=== PATIENT | female | born 1995 | race African-American/Black ===

== ENCOUNTER 2020-06-30 13:37 | Emergency (ER) | payer OTHER, SELFPAY ==
[2020-06-30 14:18] VITALS: BP 128/66; PULSE 78; RESP 16; TEMP 35.8; O2SAT 95; BMI 27.8
[2020-06-30] MEDS: traMADoL HCL 50 MG TABLET PO (14:52)
[2020-06-30] MEDS: Ibuprofen 800 MG TABLET PO (14:52)
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
--- NOTE | 2020-06-30 14:59 | XR_ITS ---
EXAMINATION: XR KNEE, LEFT CLINICAL INFORMATION: Status post twisting injury. Patellar pain. COMPARISON: None TECHNIQUE: Four views of the left knee. FINDINGS: Bones and soft tissues are normal. No fracture or joint effusion. Alignment is anatomic. Joint spaces are well maintained. No abnormal soft tissue calcification. XR/XR knee LT 4V IMPRESSION: Unremarkable left knee exam
== END 2020-06-30 16:45 | disposition home or self-care (01) ==
PROVIDERS: Emergency Provider Internal Medicine
DX: S83.92XA Sprain of unspecified site of left knee, initial encounter (principal); M25.562 Pain in left knee; X50.1XXA Overexertion from prolonged static or awkward postures, initial encounter; Y93.9 Activity, unspecified; Y92.9 Unspecified place or not applicable; Y99.9 Unspecified external cause status
CPT/HCPCS: 29505; 73564; 99283

== ENCOUNTER → 2020-07-06 13:02 | Outpatient (BNVA) | payer OTHER, SELFPAY | PROVIDERS: Visit Provider Physician Assistant | DX: S83.005A Unspecified dislocation of left patella, initial encounter (principal) | CPT/HCPCS: 99202 ==

== ENCOUNTER 2020-10-16 12:57 | Outpatient (REF) | payer OTHER, SELFPAY ==
[2020-10-17 01:09] LABS: CT PCR NOT DETECTED (Not Detect.); NG PCR NOT DETECTED (Not Detect.)
[2020-10-17 08:17] LABS: HBc Num1 0.07 S/CO (0.00-0.79); Hepatitis B Core Antibody Nonreactive (Nonreactive)
[2020-10-17 08:38] LABS: HIV AB/AG Nonreactive (Nonreactive); HIV Num 1 0.04 S/CO (0.00-0.99); ~HepC Num1 0.05 S/CO (0.00-0.79); ~Hepatitis C Antibody Nonreactive (Nonreactive)
[2020-10-17 09:23] LABS: Syphilis Screen Nonreactive (Nonreactive)
[2020-10-17 09:48] LABS: BV Int Neg Control Negative (Negative); BV Int Pos Control Positive (Positive)
== END 2020-10-16 12:58 | disposition home or self-care (01) ==
LOC: HO.LAB 12:57
PROVIDERS: PCP Internal Medicine; Visit Provider Advanced Practice Midwife
DX: Z11.3 Encounter for screening for infections with a predominantly sexual mode of transmission (principal); Z11.4 Encounter for screening for human immunodeficiency virus [HIV]; Z01.84 Encounter for antibody response examination; R10.2 Pelvic and perineal pain; N92.6 Irregular menstruation, unspecified; Z20.2 Contact with and (suspected) exposure to infections with a predominantly sexual mode of transmission
CPT/HCPCS: 36415; 81003; 81025; 86704; 86780; 86803; 87389; 87480; 87491; 87510; 87591; 87660; 99202

== ENCOUNTER 2020-12-26 10:04 | Emergency (ER) | payer OTHER, SELFPAY | END 2020-12-26 12:34 | disposition left against medical advice (07) | PROVIDERS: Emergency Provider Emergency Medicine | DX: R10.9 Unspecified abdominal pain (principal) ==

== ENCOUNTER 2021-05-09 12:51 | Outpatient (REF) | payer OTHER, SELFPAY ==
[2021-05-09 16:19] LABS: CT PCR NOT DETECTED (Not Detect.); NG PCR DETECTED (Not Detect.)
[2021-05-10 10:09] LABS: BV Int Neg Control Negative (Negative); BV Int Pos Control Positive (Positive)
== END 2021-05-09 12:52 | disposition home or self-care (01) ==
LOC: HO.LAB 12:51
PROVIDERS: PCP Internal Medicine; Visit Provider Obstetrics & Gynecology
DX: B00.9 Herpesviral infection, unspecified (principal); Z20.2 Contact with and (suspected) exposure to infections with a predominantly sexual mode of transmission
CPT/HCPCS: 87255; 87480; 87491; 87510; 87591; 87660; 99212

== ENCOUNTER → 2021-05-10 14:05 | Outpatient (BNVA) | payer OTHER, SELFPAY | PROVIDERS: PCP Internal Medicine; Visit Provider Obstetrics & Gynecology | DX: A54.9 Gonococcal infection, unspecified (principal) | CPT/HCPCS: 96372; 99211; J0696 ==

== ENCOUNTER 2021-05-23 12:52 | Outpatient (REF) | payer OTHER, SELFPAY ==
[2021-05-24 01:02] LABS: CT PCR NOT DETECTED (Not Detect.); NG PCR NOT DETECTED (Not Detect.)
== END 2021-05-23 12:53 | disposition home or self-care (01) ==
LOC: HO.LAB 12:52
PROVIDERS: PCP Internal Medicine; Visit Provider Obstetrics & Gynecology
DX: A54.9 Gonococcal infection, unspecified (principal); B00.9 Herpesviral infection, unspecified
CPT/HCPCS: 87491; 87591; 99212

== ENCOUNTER → 2021-10-15 09:51 | Outpatient (BNVA) | payer OTHER, SELFPAY | PROVIDERS: Visit Provider Advanced Practice Midwife | DX: Z32.01 Encounter for pregnancy test, result positive (principal) | CPT/HCPCS: 81025; 99212 ==

== ENCOUNTER 2021-10-17 08:17 | Outpatient (REF) | payer OTHER, SELFPAY ==
[2021-10-17 08:39] LABS: MANUAL DIFF FLAG NO
[2021-10-17 10:00] LABS: Basophils Percent Auto 0.3 % (0-2); Eosinophils Absolute Auto 0.1 X10*3/uL (0.0-0.4); Eosinophils Percent Auto 1.7 % (0-4); Hematocrit 40.3 % (37.0-47.0); Hemoglobin 13.5 g/dl (12.0-16.0); Imm Gran Abs Auto 0.02 X10*3/uL (0.00-0.03); Imm Gran Pct Auto 0.3 % (0.0-0.4); Lymphocytes Absolute Auto 1.6 X10*3/uL (1.2-4.9); Lymphocytes Percent Auto 26.4 % (20-40); Mean Corpuscular HGB Conc 33.5 g/dl (31.0-35.0); Mean Corpuscular Volume 89.6 fL (80.0-98.0); Mean Platelet Volume 11.6 fL (9.4-12.3); Monocytes Absolute Auto 0.4 X10*3/uL (0.1-1.2); Monocytes Percent Auto 6.5 % (2-11); Neutrophils Absolute Auto 3.8 x10*3/uL (2.0-8.3); Neutrophils Percent Auto 64.8 % (45-73); Platelet Count 211 X10*3/uL (160-400); Red Cell Distribution Width 13.4 % (11.0-16.0); White Blood Count 5.9 X10*3/uL (4.8-10.8)
[2021-10-17 10:04] LABS: Appearance Urine HAZY; Color Urine YELLOW; Glucose Urine UA NEG (NEG); Leukocyte Esterase Urine NEG (NEG); Nitrite Urine NEG (NEG); PH 8.5 (5.0-8.0); Specific Gravity - Urine 1.015 (1.005-1.025); Urine Blood NEG (NEG); Urine Ketones NEG (NEG); Urine Protein NEG (NEG-TRACE)
[2021-10-17 10:15] LABS: Alanine Aminotransferase 19 U/L (0-31); Alkaline Phosphatase 68 U/L (39-117); Anion Gap 10 (12-20); Aspartate Amino Transferase 14 U/L (5-31); Bilirubin Total 0.8 mg/dL (0.0-1.0); Blood Urea Nitrogen 7 mg/dL (9-16); Calcium 9.4 mg/dL (8.4-10.2); Carbon Dioxide 24 mmol/L (22-29); Chloride 108 mmol/L (96-108); Cholesterol 127 mg/dL; Estimated Glomerular Filt Rate > 60; Glucose Fasting 92 mg/dL (60-99); HDL Cholesterol 49 mg/dL; LDL Cholesterol Calculated 69 mg/dl; Potassium 3.9 mmol/L (3.3-5.1); Sodium 138 mmol/L (135-145); Total Protein 6.8 g/dL (6.5-8.0); Triglycerides 45 mg/dL
[2021-10-17 10:18] LABS: HCG Quantitative 14375 mIU/mL
[2021-10-17 10:32] LABS: HBsAGNum1 0.24 S/CO (0.00-0.99); HIV AB/AG Nonreactive (Nonreactive); HIV Num 1 0.08 S/CO (0.00-0.99); Hepatitis B Surface Antigen Negative (Negative)
[2021-10-17 10:38] LABS: TSH reflex Free T4 0.52 uIU/mL (0.32-4.0)
[2021-10-18 08:44] LABS: Syphilis Screen Nonreactive (Nonreactive)
== END 2021-10-17 08:18 | disposition home or self-care (01) ==
LOC: HO.LAB 08:17
PROVIDERS: Obstetrics & Gynecology; Absent Provider Internal Medicine; PCP Internal Medicine; Visit Provider Advanced Practice Midwife
DX: O26.899 Other specified pregnancy related conditions, unspecified trimester (principal); R55 Syncope and collapse; O98.319 Other infections with a predominantly sexual mode of transmission complicating pregnancy, unspecified trimester; A60.9 Anogenital herpesviral infection, unspecified; O99.210 Obesity complicating pregnancy, unspecified trimester; E66.9 Obesity, unspecified; Z3A.00 Weeks of gestation of pregnancy not specified
CPT/HCPCS: 36415; 80053; 80061; 81003; 84443; 84702; 85025; 86780; 87340; 87389

== ENCOUNTER 2021-10-18 10:24 | Outpatient (REF) | payer OTHER, SELFPAY ==
--- NOTE | ~2021-10-18 | US_ITS ---
EXAMINATION: OBSTETRICAL ULTRASOUND, FIRST TRIMESTER HISTORY: 25-year-old at 8.2 weeks of gestation Viability LMP: Uncertain COMPARISON: None TECHNIQUE: Real time transabdominal imaging with color and M-mode Doppler. FINDINGS: A single, live IUP CRL of 8.6 mm c/w 6.6wks is noted. Heart Rate: 139 beats per minute. The left ovary is within normal limits. The right ovary was not the visualized today. GESTATIONAL AGE: 1. GA from LMP: 8.2 wks 2. GA from AUA: 6.6 wks ESTIMATED DATE OF DELIVERY: 1. EMMANUEL from LMP: 05/28/2022 2. EMMANUEL from AUA: 06/07/2022 US/US OB <= 14 weeks fetus IMPRESSION: 1. A single live IUP 2. Size less than dates, CRL is consistent with 6 weeks and 6 days. 3. Adjust EMMANUEL to 06/07/2022 based on today's exam. Thank you very much for this referral. This note was generated with a voice recognition program. Please excuse any errors which may have been overlooked during my review of this note. Sometimes these errors may affect the content or meaning of a given sentence.
== END 2021-10-18 10:25 | disposition home or self-care (01) ==
LOC: HO.US 10:24
PROVIDERS: PCP Internal Medicine; Visit Provider Advanced Practice Midwife
DX: Z34.91 Encounter for supervision of normal pregnancy, unspecified, first trimester (principal)
CPT/HCPCS: 76801

== ENCOUNTER → 2021-10-25 09:26 | Outpatient (BNVA) | payer OTHER, SELFPAY | PROVIDERS: PCP Internal Medicine; Visit Provider Advanced Practice Midwife | DX: O99.211 Obesity complicating pregnancy, first trimester (principal); E66.9 Obesity, unspecified; Z3A.01 Less than 8 weeks gestation of pregnancy | CPT/HCPCS: 99212 ==

== ENCOUNTER 2021-10-31 08:39 | Outpatient (REF) | payer OTHER, SELFPAY ==
[2021-10-31 10:17] LABS: Hemoglobin 13.4 g/dl (12.0-16.0); Mean Corpuscular HGB Conc 33.5 g/dl (31.0-35.0); Mean Corpuscular Hemoglobin 30.4 pg (27.0-33.0); Mean Corpuscular Volume 90.7 fL (80.0-98.0); Mean Platelet Volume 10.7 fL (9.4-12.3); Platelet Count 186 X10*3/uL (160-400); Red Blood Count 4.41 X10*6/uL (4.20-5.50); Red Cell Distribution Width 13.5 % (11.0-16.0); White Blood Count 5.9 X10*3/uL (4.8-10.8)
[2021-10-31 10:42] LABS: Glucose 1 Hour PP 50gm Dose 110 mg/dL (60-140)
[2021-10-31 11:00] LABS: HBsAGNum1 0.25 S/CO (0.00-0.99); HIV AB/AG Nonreactive (Nonreactive); HIV Num 1 0.05 S/CO (0.00-0.99); Hepatitis B Surface Antigen Negative (Negative); ~HepC Num1 0.04 S/CO (0.00-0.79); ~Hepatitis C Antibody Nonreactive (Nonreactive)
[2021-10-31 11:56] LABS: Amphetamine Screen Urine Not Detected (Not Detect); Barbiturates, Urine Not Detected (Not Detect); Benzodiazepines Screen Urine Not Detected (Not Detect); Cannabinoid Screen Urine POSITIVE (Not Detect); Cocaine Screen Urine Not Detected (Not Detect); Fentanyl, urine Not Detected (Not Detect); Opiate Screen Urine Not Detected (Not Detect); Phencyclidine Screen Urine Not Detected (Not Detect)
[2021-11-01 07:46] LABS: Syphilis Screen Nonreactive (Nonreactive)
[2021-11-01 08:51] LABS: Rubella IgG Antibody <0.90 Index
== END 2021-10-31 08:40 | disposition home or self-care (01) ==
LOC: HO.LAB 08:39
PROVIDERS: PCP Internal Medicine; Visit Provider Advanced Practice Midwife
DX: Z32.01 Encounter for pregnancy test, result positive (principal)
CPT/HCPCS: 80307; 85027; 86762; 86780; 86787; 86803; 86850; 86900; 86901; 87086; 87340; 87389

== ENCOUNTER 2021-11-05 10:34 | Outpatient (REF) | payer OTHER, SELFPAY ==
[2021-11-05 17:05] LABS: CT PCR NOT DETECTED (Not Detect.); NG PCR NOT DETECTED (Not Detect.)
[2021-11-06 09:21] LABS: BV Int Neg Control Negative (Negative); BV Int Pos Control Positive (Positive)
[2021-11-08 06:25] LABS: HPV mRNA E6/E7 rflx Not Detected (Not Detected)
== END 2021-11-05 10:35 | disposition home or self-care (01) ==
LOC: HO.LAB 10:34
PROVIDERS: PCP Internal Medicine; Visit Provider Advanced Practice Midwife
DX: Z34.91 Encounter for supervision of normal pregnancy, unspecified, first trimester (principal); Z3A.09 9 weeks gestation of pregnancy
CPT/HCPCS: 87480; 87491; 87510; 87591; 87624; 87660; 88142; 99212

== ENCOUNTER 2021-11-22 12:11 | Emergency (ER) | payer OTHER, SELFPAY ==
--- NOTE | ~2021-11-22 | NM_ITS ---
EXAMINATION: NM LUNG IMAGE PERFUSION CLINICAL INFORMATION: Syncope, SOB. Patient is . COMPARISON: None TECHNIQUE: Following intravenous administration of 1 mCi of 99m Tc MAA , imaging of both lungs were obtained in multiple projections. Ventilation study was not performed. FINDINGS: There is normal perfusion seen to all segments of the lungs without any focal segmental, subsegmental and nonsegmental defect. Ventilation study is not performed. NM/NM pul perfusion IMPRESSION: Normal perfusion scan.
--- NOTE | ~2021-11-22 | XR_ITS ---
EXAMINATION: XR CHEST CLINICAL INFORMATION: Concern for pulmonary embolism. COMPARISON: None TECHNIQUE: Frontal view of the chest was obtained. FINDINGS: No significant abnormality is noted involving the heart, lungs, mediastinum, bony thorax or soft tissues. XR/XR chest 1V IMPRESSION: Unremarkable examination.
[2021-11-22 12:12] VITALS: BP 118/57; PULSE 75; RESP 20; TEMP 36.8; O2SAT 100; BMI 31.4
--- NOTE | 2021-11-22 12:56 | ECG_ITS ---
Test Reason : cp Blood Pressure : / mmHG Vent. Rate : 060 BPM Atrial Rate : 060 BPM P-R Int : 134 ms QRS Dur : 108 ms QT Int : 424 ms P-R-T Axes : 027 011 026 degrees QTc Int : 424 ms Normal sinus rhythm Normal ECG No previous ECGs available Referred By: Lou Casey Electronically Signed By:GOMEZ HONG MD
[2021-11-22 12:57] VITALS: BP 99/58; PULSE 57
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
[2021-11-22] MEDS: 0.9 % Sodium Chloride 1,000 ML 999 ML IV (13:10)
[2021-11-22 13:31] VITALS: BP 107/72; PULSE 71
[2021-11-22 13:32] VITALS: BP 105/81; PULSE 90
[2021-11-22 13:39] LABS: MANUAL DIFF FLAG NO
[2021-11-22 13:41] LABS: Basophils Percent Auto 0.3 % (0-2); Eosinophils Absolute Auto 0.1 X10*3/uL (0.0-0.4); Eosinophils Percent Auto 0.7 % (0-4); Hematocrit 39.5 % (37.0-47.0); Hemoglobin 13.6 g/dl (12.0-16.0); Imm Gran Abs Auto 0.02 X10*3/uL (0.00-0.03); Imm Gran Pct Auto 0.3 % (0.0-0.4); Lymphocytes Absolute Auto 1.6 X10*3/uL (1.2-4.9); Lymphocytes Percent Auto 22.2 % (20-40); Mean Corpuscular HGB Conc 34.4 g/dl (31.0-35.0); Mean Corpuscular Hemoglobin 30.4 pg (27.0-33.0); Mean Corpuscular Volume 88.4 fL (80.0-98.0); Mean Platelet Volume 11.3 fL (9.4-12.3); Monocytes Absolute Auto 0.4 X10*3/uL (0.1-1.2); Neutrophils Absolute Auto 5.1 x10*3/uL (2.0-8.3); Neutrophils Percent Auto 71.5 % (45-73); Platelet Count 203 X10*3/uL (160-400); Red Blood Count 4.47 X10*6/uL (4.20-5.50); Red Cell Distribution Width 13.4 % (11.0-16.0); White Blood Count 7.2 X10*3/uL (4.8-10.8)
[2021-11-22 13:42] LABS: Appearance Urine CLOUDY; Color Urine YELLOW; Glucose Urine UA NEG (NEG); Leukocyte Esterase Urine NEG (NEG); Nitrite Urine NEG (NEG); Specific Gravity - Urine 1.015 (1.005-1.025); Urine Blood NEG (NEG); Urine Ketones NEG (NEG); Urine Protein NEG (NEG-TRACE)
[2021-11-22 13:48] LABS: D Dimer High Sensitivity 773 NG/ML
[2021-11-22 13:56] LABS: Alanine Aminotransferase 18 U/L (0-31); Alkaline Phosphatase 58 U/L (39-117); Anion Gap 12 (12-20); Aspartate Amino Transferase 12 U/L (5-31); Bilirubin Direct 0.2 mg/dL (0.0-0.5); Bilirubin Total 0.5 mg/dL (0.0-1.0); Blood Urea Nitrogen 3 mg/dL (9-16); Carbon Dioxide 24 mmol/L (22-29); Chloride 104 mmol/L (96-108); Creatinine Clr Calc Pharmacy 152.9; Estimated Glomerular Filt Rate > 60; Glucose Random 74 mg/dL (60-115); Magnesium 1.9 mg/dL (1.6-2.6); Potassium 3.5 mmol/L (3.3-5.1); Sodium 136 mmol/L (135-145); Total Protein 6.9 g/dL (6.5-8.0)
[2021-11-22 14:00] LABS: Troponin-I High Sensitivity < 3.5 ng/L (<3.5-17.0)
== END 2021-11-22 17:11 | disposition home or self-care (01) ==
PROVIDERS: Physician Assistant; Emergency Provider Emergency Medicine; PCP Internal Medicine
DX: O26.891 Other specified pregnancy related conditions, first trimester (principal); R42 Dizziness and giddiness; R06.00 Dyspnea, unspecified; R79.1 Abnormal coagulation profile; O99.511 Diseases of the respiratory system complicating pregnancy, first trimester; J45.909 Unspecified asthma, uncomplicated; O99.331 Smoking (tobacco) complicating pregnancy, first trimester; F17.210 Nicotine dependence, cigarettes, uncomplicated; Z3A.12 12 weeks gestation of pregnancy
CPT/HCPCS: 36415; 71045; 78580; 80048; 80076; 81003; 83735; 84484; 84702; 85025; 85379; 93005; 96360; 99283; 99284; A9540

== ENCOUNTER 2022-01-27 14:48 | Emergency (ER) | payer OTHER, SELFPAY ==
[2022-01-27 15:11] VITALS: BP 108/73; PULSE 67; RESP 18; TEMP 36.6; O2SAT 99; BMI 34.1
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
[2022-01-27 18:38] LABS: COVID-19 Test Negative (Negative)
--- NOTE | 2022-01-27 18:57 | PC.NURSE ---
PT WAS DISCHARGED BY PROVIDER TO [facility] FOR FURTHER EVALUATION
== END 2022-01-27 18:57 | disposition short-term general hospital (02) ==
PROVIDERS: Nurse Practitioner Family; Emergency Provider Emergency Medicine; PCP Internal Medicine
DX: O9A.212 Injury, poisoning and certain other consequences of external causes complicating pregnancy, second trimester (principal); S39.012A Strain of muscle, fascia and tendon of lower back, initial encounter; V43.52XA Car driver injured in collision with other type car in traffic accident, initial encounter; R10.30 Lower abdominal pain, unspecified; O99.332 Smoking (tobacco) complicating pregnancy, second trimester; Z3A.21 21 weeks gestation of pregnancy; Y93.89 Activity, other specified; Y92.410 Unspecified street and highway as the place of occurrence of the external cause; Y99.9 Unspecified external cause status; Z20.822 Contact with and (suspected) exposure to COVID-19
CPT/HCPCS: 87635; 99281; 99283

== ENCOUNTER 2023-03-20 10:22 | Outpatient (AMB) | payer OTHER, SELFPAY ==
[2023-03-20 10:28] VITALS: BP 132/82; PULSE 76; RESP 17; O2SAT 99; BMI 31.8
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
== END 2023-03-20 11:21 | disposition home or self-care (01) ==
PROVIDERS: PCP Internal Medicine; Visit Provider Internal Medicine
DX: R10.9 Unspecified abdominal pain (principal); F31.60 Bipolar disorder, current episode mixed, unspecified; M54.50 Low back pain, unspecified; Z23 Encounter for immunization; E66.9 Obesity, unspecified; Z68.31 Body mass index [BMI] 31.0-31.9, adult; Z87.898 Personal history of other specified conditions; F90.9 Attention-deficit hyperactivity disorder, unspecified type; F43.10 Post-traumatic stress disorder, unspecified
CPT/HCPCS: 90471; 90686; 99214

== ENCOUNTER 2023-04-01 09:05 | Outpatient (REF) | payer OTHER, SELFPAY ==
--- NOTE | ~2023-04-01 | US_ITS ---
EXAMINATION: US ABDOMEN COMPLETE CLINICAL INFORMATION: Unspecified abdominal pain. Pain is mild, left periumbilical. COMPARISON: None available. TECHNIQUE: Real-time imaging of the abdominal viscera. FINDINGS: PANCREAS: Normal head and body, the tail is obscured by bowel gas. ABDOMINAL AORTA: The proximal, mid, and distal segments are normal in caliber. INFERIOR VENA CAVA: Visualized portions are normal. LIVER: Normal. The liver is normal in size. The liver contour is normal. Parenchymal echogenicity is normal. No focal hepatic lesion. There is no intrahepatic biliary duct dilatation seen. GALLBLADDER: Normal. The gallbladder is physiologically distended without evidence of stones, polyps, wall thickening or pericholecystic fluid. A small amount of echogenic bile is seen within the gallbladder. COMMON BILE DUCT: Normal in caliber measuring 0.4 cm in diameter. RIGHT KIDNEY: Normal. No hydronephrosis. No renal calculi or focal parenchymal lesions. The kidney measures 11.5 cm in maximum dimension. LEFT KIDNEY: Normal. No hydronephrosis. No renal calculi or focal parenchymal lesions. The kidney measures 11.0 cm in maximum dimension. SPLEEN: Normal. The spleen measures 12.0 cm in maximum dimension. FREE FLUID: None. ADDITIONAL FINDINGS: The area of pain to the left of the umbilicus is scanned. No obvious sonographic abnormalities demonstrated. US/US abdomen complete IMPRESSION: No abnormality demonstrated.
[2023-04-01 13:40] LABS: MANUAL DIFF FLAG NO
[2023-04-01 13:47] LABS: Basophils Percent Auto 0.3 % (0-2); Eosinophils Percent Auto 0.7 % (0-4); Hematocrit 42.6 % (37.0-47.0); Hemoglobin 14.4 g/dl (12.0-16.0); Imm Gran Abs Auto 0.01 X10*3/uL (0.00-0.03); Imm Gran Pct Auto 0.2 % (0.0-0.4); Lymphocytes Absolute Auto 1.7 X10*3/uL (1.2-4.9); Lymphocytes Percent Auto 29.6 % (20-40); Mean Corpuscular HGB Conc 33.8 g/dl (31.0-35.0); Mean Corpuscular Hemoglobin 29.1 pg (27.0-33.0); Mean Corpuscular Volume 86.2 fL (80.0-98.0); Mean Platelet Volume 11.8 fL (9.4-12.3); Monocytes Absolute Auto 0.3 X10*3/uL (0.1-1.2); Monocytes Percent Auto 5.5 % (2-11); Neutrophils Absolute Auto 3.7 x10*3/uL (2.0-8.3); Neutrophils Percent Auto 63.7 % (45-73); Platelet Count 252 X10*3/uL (160-400); Red Blood Count 4.94 X10*6/uL (4.20-5.50); White Blood Count 5.8 X10*3/uL (4.8-10.8)
[2023-04-01 14:10] LABS: Alanine Aminotransferase 25 U/L (0-31); Albumin Level 4.7 g/dL (3.5-5.0); Alkaline Phosphatase 65 U/L (39-117); Anion Gap 14 (12-20); Aspartate Amino Transferase 29 U/L (5-31); Blood Urea Nitrogen 8 mg/dL (9-16); Carbon Dioxide 21 mmol/L (22-29); Chloride 107 mmol/L (96-108); Estimated Glomerular Filt Rate > 60; Glucose Random 72 mg/dL (60-115); Potassium 3.6 mmol/L (3.3-5.1); Sodium 138 mmol/L (135-145); Total Protein 8.1 g/dL (6.5-8.0)
[2023-04-01 14:20] LABS: Appearance Urine Turbid; Color Urine Dark Yellow; Glucose Urine UA Negative (Negative); Leukocyte Esterase Urine Moderate (2+) (Negative); Nitrite Urine Negative (Negative); Specific Gravity - Urine >= 1.030 (1.005-1.025); UMIC TRIGGER UACC YES; Urine Blood Negative (Negative); Urine Ketones 80 mg/dL (Negative); Urine Protein 30 (1+) mg/dL (Neg-Trace)
[2023-04-01 14:25] LABS: Erythrocyte Sedimentation Rate 9 MM/HR (0-20)
[2023-04-01 14:43] LABS: Bacteria Urine 4+ (None Seen); Hyaline Casts Urine 0-2 /LPF (0-2); Squamous Epithelial Cell Urine >20 /HPF (0-2); UACC Culture Trigger YES; WBC Urine 21-50 /HPF (0-5)
[2023-04-01 17:19] LABS: CT PCR NOT DETECTED (Not Detect.); NG PCR NOT DETECTED (Not Detect.)
[2023-04-02 04:16] LABS: Syphilis Screen Nonreactive (Nonreactive)
[2023-04-02 04:37] LABS: HBS Num1 1.25 mIU/mL (0-7.99); HBc Num1 0.15 S/CO (0.00-0.79); HBsAGNum1 0.36 S/CO (0.00-0.99); HIV AB/AG Nonreactive (Nonreactive); HIV Num 1 0.26 S/CO (0.00-0.99); Hepatitis B Core Antibody Nonreactive (Nonreactive); Hepatitis B Surface Antigen Negative (Negative); ~HepC Num1 0.06 S/CO (0.00-0.79); ~Hepatitis B Surface Antibody NONREACTIVE (Nonreactive); ~Hepatitis C Antibody Nonreactive (Nonreactive)
[2023-04-03 18:39] LABS: Herpes Simplex Type 1 IgG >58.00 index; Herpes Simplex Type 2 IgG <0.90 index
== END 2023-04-01 09:06 | disposition home or self-care (01) ==
LOC: HO.HMGCX 09:05
PROVIDERS: PCP Internal Medicine; Visit Provider Internal Medicine
DX: R10.9 Unspecified abdominal pain (principal); Z20.2 Contact with and (suspected) exposure to infections with a predominantly sexual mode of transmission
CPT/HCPCS: 0353U; 76700; 80053; 81001; 81003; 85025; 85652; 86695; 86696; 86704; 86706; 86780; 86803; 87086; 87340; 87389

== ENCOUNTER 2024-03-11 12:48 | Outpatient (AMB) | payer OTHER, SELFPAY ==
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
[2024-03-11 12:54] VITALS: BP 110/62; PULSE 81; O2SAT 98; BMI 31.1
== END 2024-03-11 13:31 | disposition home or self-care (01) ==
PROVIDERS: PCP Internal Medicine; Visit Provider Internal Medicine
DX: Z00.00 Encounter for general adult medical examination without abnormal findings (principal); J45.21 Mild intermittent asthma with (acute) exacerbation; F31.60 Bipolar disorder, current episode mixed, unspecified; F90.9 Attention-deficit hyperactivity disorder, unspecified type; F43.10 Post-traumatic stress disorder, unspecified; E66.9 Obesity, unspecified

== ENCOUNTER → 2024-03-11 12:48 | Outpatient (BNVA) | payer OTHER, SELFPAY | PROVIDERS: PCP Internal Medicine; Visit Provider Internal Medicine | DX: Z00.01 Encounter for general adult medical examination with abnormal findings (principal); J45.21 Mild intermittent asthma with (acute) exacerbation; F90.0 Attention-deficit hyperactivity disorder, predominantly inattentive type; F43.10 Post-traumatic stress disorder, unspecified; F31.60 Bipolar disorder, current episode mixed, unspecified; E66.9 Obesity, unspecified | CPT/HCPCS: 96127; 99395 ==

== ENCOUNTER 2025-03-03 14:40 | Outpatient (AMB) | payer OTHER, SELFPAY ==
[2025-03-03 14:44] VITALS: BP 116/74; PULSE 75; O2SAT 97; BMI 35.6
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
--- OUTSIDE RECORDS SUMMARY | 2025-03-03 15:32 | XMS_ITS | Clinical Summary ---
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 Active lidocaine (LIDODERM) 5 % patch Apply 1 patch topically 1 (one) time each day if needed for mild pain. Remove & discard patch within 12 hours or as directed by MD. Active LORazepam (ATIVAN) 0.5 mg tablet Take 1 tablet (0.5 mg total) by mouth 1 (one) time each day if needed for anxiety. Max Daily Amount: 0.5 mg Active venlafaxine XR (EFFEXOR-XR) 150 mg 24 hr capsule Take 1 capsule (150 mg total) by mouth 1 (one) time each day. Do not crush or chew. Active amphetamine-de xtroamphetamin e (ADDERALL) 20 mg tablet Take 1 tablet (20 mg total) by mouth 2 (two) times a day. Max Daily Amount: 40 mg Active albuterol 2.5 mg /3 mL (0.083 %) nebulizer solution Take 3 mL (2.5 mg total) by nebulization every 6 (six) hours if needed for wheezing. 75 mL 5 03/20/20 25 Active predniSONE (DELTASONE) 20 mg tablet Take 2 tablets (40 mg total) by mouth 1 (one) time each day for 5 days. 10 each 02/24/20 25 Encounters Date Type Department Care Team Description 02/18/2025 11:53 AM EDT - 02/18/2025 3:46 PM EDT Emergency [facility] Emergency [address] [place] [id number] David Potter MD SOB (shortness of breath) (Primary Dx); Bronchitis Discharge Disposition: Home or Self Care 01/01/2025 8:03 AM EDT - 01/01/2025 9:[address] [facility] Emergency [address] [place] [phone] Exacerbation of asthma, unspecified asthma severity, unspecified whether persistent (Primary Dx) Discharge Disposition: Home or Self Care from Last 3 Months Medical History Medical History Date Comments Asthma Social History Tobacco Use Types Packs/Day Years Used Date Smoking Tobacco: Former Cigarettes 1.5 1.7 2 024 - 2005 Smokeless Tobacco: Never Alcohol Use Standard Drinks/Week Comments Not Currently 0 (1 standard drink = 0.6 oz pur e alcohol) Comments No Sex and Gender Information Value Date Recorded Sex Assigned at Female 06/13/2024 10:48 AM EST Legal Sex Female 9:59 AM EST Gender Identity Female 06/13/2024 10:48 AM EST Sexual Orientation Straight 06/13/2024 10 :48 AM EST Obstetrics History Last Filed Vital Signs Vital Sign Reading Time Taken Comments Blood Pressure 121/92 02/18/2025 3:47 PM EDT Pulse 102 02/18/2025 3:47 PM EDT Temperature 36.5 C (97.7 F) 02/18/2025 3:47 PM EDT Respiratory Rate 20 02/18/2025 3:47 PM EDT Oxygen Saturation 97% 02/18/2025 3:47 PM EDT Inhaled Oxygen Concentration - - Weight 97.5 kg (215 lb) 02/18/2025 12:13 PM EDT Height 170.2 cm (5' 7 ) 02/18/2025 12:13 PM EDT Body Mass Index 33.67 02/18/2025 12:13 PM EDT Plan of Treatment Health Maintenance Due Date Last Done Comments Hepatitis B Vaccines (1 of 3 - 19+ 3-dose series) 12/02/2014 Cervical Cancer Screening: P ap Smear 12/02/2016 Pneumococcal Vaccine: Pediatrics (0 to 5 Years) and At-Risk Patients (6 to 49 Years) (2 of 2 - PCV) 06/18/2018 06/18/2017 HIV Screening 05/06/2022 Hepatitis C Screening 05/06/2022 Social Influencers of Health Screening 05/06/2022 Depression Screening 06/08/2024 COVID-19 Vaccine (4 - 2024-2 6 season) 2025 11/27/2021, 02/06/2021, 01/16/2021 Influenza Vaccine (#1) 2025 , 04/21/2019 DTaP,Tdap,and Td Vaccines (4 - Td or Tdap) 03/18/2032 03/18/2022, 07/28/2019, 04/18/2017 MMR Vaccines Aged Out 05/30/2022 No longer eligi ble based on patient's age to complete this topic HIB Vaccines Aged Out No longer eligi ble based on patient's age to complete this topic HPV Vaccines Aged Out No longer eligi ble based on patient's age to complete this topic Hepatitis A Vaccines Aged Out No long er eligible based on patient's age to complete this topic IPV Vaccines Aged Out No longer eligi ble based on patient's age to complete this topic Meningococcal ACWY Vaccine Aged Out N o longer eligible based on patient's age to complete this topic Meningococcal B Vaccine Aged Out No l onger eligible based on patient's age to complete this topic RSV Immunization Patients Under 20 months Aged Out No longer eligible b ased on patient's age to complete this topic Varicella Vaccines Aged Out No longer eligible based on patient's age to complete this topic Procedures Procedure Name Priority Date/Time Associated Diagnosis Comments B-TYPE NATRIURETIC PEPTIDE STAT 02/18/2025 2:59 PM EDT TROPONIN I HIGH SENSITIVITY Timed 02/18/2025 2:[address] ANGIO CHEST WO AND/OR W CONTRAST STAT 02/18/2025 2:08 PM EDT SOB (shortness of breath) VAS US DUPLEX LOWER EXT VENOUS BILAT STAT 02/18/2025 1:48 PM EDT SOB (shortness of breath) ECG 12-LEAD STAT 02/18/2025 12:26 PM EDT [id number], RSV, FLU A AND B QUALITATIVE RT-PCR, INTERNAL LAB STAT 02/18/2025 12:26 PM EDT PROTHROMBIN TIME WITH INR STAT 02/18/2025 12:16 PM EDT ACTIVATED PARTIAL THROMBOPLASTIN TIME STAT 02/18/2025 12:16 PM EDT TROPONIN I HIGH SENSITIVITY Timed 02/18/2025 12:12 PM EDT CBC WITH AUTO DIFFERENTIAL STAT 02/18/2025 12:12 PM EDT VENOUS BLOOD GAS STAT 02/18/2025 12:1 2 PM EDT D-DIMER STAT 02/18/2025 12:12 PM EDT CBC AND DIFFERENTIAL STAT 02/18/2025 12:12 PM EDT HCG, SERUM, QUALITATIVE STAT 02/19/20 25 12:12 PM EDT BASIC METABOLIC PANEL STAT 02/18/2025 12:12 PM EDT XR CHEST 2 VIEWS STAT 01/01/2025 8:53 AM EDT from Last 3 Months Results * B-type natriuretic peptide (02/18/2025 2:59 PM EDT) BNP 4 <=100 pcg/mL LAB CHEMISTRY METHOD 02/18/2025 3:51 PM EDT [facility] Blood Venous blood specimen / Unknown Venipuncture / Unknown 02/18/2025 2:59 PM EDT 02/18/2025 3:18 PM EDT us David Potter MD LAB BLOOD ORDERABLES Final Result Performing Organization Address City/[facility]/ZIP Co de Phone Number [facility] [address] [place] [address], [place] [phone] * Troponin I high sensitivity (NOW and then in 1 hour) (02/18/2025 2:36 PM EDT) Only the most recent of2 resultswithin the time period is included. [facility] High Sensitivity Troponin I 3 <=54 ng/L LAB CHEMISTRY METHOD 02/18/2025 3:22 PM EDT [facility] Blood Venous blood specimen / Unknown Venipuncture / Unknown 02/18/2025 2:36 PM EDT 02/18/2025 2:57 PM EDT Narrative [facility] - 02/18/2025 3:22 PM EDT High levels of biotin in samples may falsely decrease hsTroponin values. Use caution when interpreting hsTroponin results in patients taking biotin who exhibit renal impairment (eGFR <60) or in patients taking more than 20 mg/day of biotin. us David Potter MD LAB BLOOD ORDERABLES Final Result [facility] [address] [place] [address], [place] [phone] * CT Angio Chest wo and/or w Contrast (02/18/2025 2:08 PM EDT) Anatomical Region Laterality Modality Body Computed Tomogra phy 02/18/2025 2:46 PM EDT Impressions 02/18/2025 2:49 PM EDT No pulmonary arterial emboli. Mild bronchitis. No pneumonia. -------- FINAL REPORT -------- Dictated By: FABRICIO BLAIR Dictated Date: 02/18/2025 14:46 ET Assigned Physician: FABRICIO BLAIR Reviewed and Electronically Signed By: FABRICIO BLAIR Signed Date: 02/18/2025 14:49 ET Workstation ID: [id number] Transcribed By: Self Edit Transcribed Date: 02/18/2025 14:46 ET Narrative 02/18/2025 2:49 PM EDT PROCEDURE: Chest CTA INDICATION: Shortness of breath TECHNIQUE: Chest CTA with intravenous administration of 90cc ISOVUE 370. Multi planar reformats were created and interpreted. The examination was performed utilizing dose reduction techniques.3-D or MIP images were produced with postprocessing on an independent computer workstation. COMPARISON: 01/01/2025 FINDINGS: LUNGS/PLEURA: Central airways are patent. Mild diffuse bronchial wall thickening. No consolidation or suspicious pulmonary nodule. No pleural effusion or pneumothorax. MEDIASTINUM: No pulmonary arterial emboli. Thyroid gland is unremarkable. No mediastinal or hilar lymphadenopathy. Cardiac chambers are normal in size. No pericardial effusion. Esophagus is normal. Thoracic aorta is normal in size. No dissection. No significant coronary calcifications. Exam was not tailored to evaluate the coronary arteries. CHEST WALL: No axillary lymphadenopathy or superficial hematoma. UPPER ABDOMEN:The visualized portions of the upper abdomen are unremarkable. BONES: Bones are normal. Procedure Note Fabricio Blair MD - 02/18/2025 PROCEDURE: Chest CTA INDICATION: Shortness of breath TECHNIQUE: Chest CTA with intravenous administration of 90cc ISOVUE 370.Multi planar reformats were created and interpreted. The examination wasperformed utilizing dose reduction techniques.3-D or MIP images wereproduced with postprocessing on an independent computer workstation. COMPARISON: 01/01/2025 FINDINGS: LUNGS/PLEURA: Central airways are patent. Mild diffuse bronchial wallthickening. No consolidation or suspicious pulmonary nodule. No pleuraleffusion or pneumothorax. MEDIASTINUM: No pulmonary arterial emboli. Thyroid gland is unremarkable.No mediastinal or hilar lymphadenopathy. Cardiac chambers are normal insize. No pericardial effusion. Esophagus is normal. Thoracic aorta isnormal in size. No dissection. No significant coronary calcifications.Exam was not tailored to evaluate the coronary arteries. CHEST WALL: No axillary lymphadenopathy or superficial hematoma. UPPER ABDOMEN:The visualized portions of the upper abdomen areunremarkable. BONES: Bones are normal. IMPRESSION: No pulmonary arterial emboli. Mild bronchitis. No pneumonia. -------- FINAL REPORT -------- Dictated By: FABRICIO BLAIR Dictated Date: 02/18/2025 14:46 ET Assigned Physician: FABRICIO BLAIR Reviewed and Electronically Signed By: FABRICIO BLAIR Signed Date: 02/18/2025 14:49 ET Workstation ID: [id number] Transcribed By: Self Edit Transcribed Date: 02/18/2025 14:46 ET David Potter MD IMG CT PROCEDURES Final Res ult * Vascular US Duplex Lower Extremity Venous Bilateral (02/18/2025 1:48 PM EDT) Anatomical Region Laterality Modality Vascular, Abdomen Ultrasound 02/18/2025 2:11 PM EDT Impressions 02/18/2025 2:11 PM EDT NO RIGHT OR LEFT LOWER EXTREMITY DEEP VENOUS THROMBOSIS. -------- FINAL REPORT -------- Dictated By: FABRICIO BLAIR Dictated Date: 02/18/2025 14:11 ET Assigned Physician: FABRICIO BLAIR Reviewed and Electronically Signed By: FABRICIO BLAIR Signed Date: 02/18/2025 14:11 ET Workstation ID: [id number] Transcribed By: Self Edit Transcribed Date: 02/18/2025 14:11 ET Narrative 02/18/2025 2:11 PM EDT PROCEDURE: VAS US DUPLEX LOWER EXT VENOUS BILAT INDICATION: Pain TECHNIQUE: 2-D and color Doppler imaging of the lower extremity venous vasculature with compression and augmentation maneuvers. COMPARISON: No priors available. FINDINGS: RIGHT: There is normal flow, compression, and augmentation from the common femoral through the popliteus. Visualized calf veins are patent. LEFT: There is normal flow, compression, and augmentation from the common femoral through the popliteus. Visualized calf veins are patent. Procedure Note Fabricio Blair MD - 02/18/2025 PROCEDURE: VAS US DUPLEX LOWER EXT VENOUS BILAT INDICATION: Pain TECHNIQUE: 2-D and color Doppler imaging of the lower extremity venousvasculature with compression and augmentation maneuvers. COMPARISON: No priors available. FINDINGS: RIGHT: There is normal flow, compression, and augmentation from the commonfemoral through the popliteus. Visualized calf veins are patent. LEFT: There is normal flow, compression, and augmentation from the commonfemoral through the popliteus. Visualized calf veins are patent. IMPRESSION: NO RIGHT OR LEFT LOWER EXTREMITY DEEP VENOUS THROMBOSIS. -------- FINAL REPORT -------- Dictated By: FABRICIO BLAIR Dictated Date: 02/18/2025 14:11 ET Assigned Physician: FABRICIO BLAIR Reviewed and Electronically Signed By: FABRICIO BLAIR Signed Date: 02/18/2025 14:11 ET Workstation ID: [id number] Transcribed By: Self Edit Transcribed Date: 02/18/2025 14:11 ET David Potter MD CV VASCULAR PROCEDURES Abiola l Result * ECG 12 lead (02/18/2025 12:26 PM EDT) Ventricular Rate ECG 95 BPM GEMUSE Atrial Rate 95 BPM GEMUSE P-R Interval 132 ms GEMUSE QRS Duration 94 ms GEMUSE Q-T Interval 324 ms GEMUSE QTc 407 ms GEMUSE P Wave [place] 74 degrees GEMUSE R [place] 36 degrees GEMUSE T [place] -10 degrees GEMUSE ECG Interpretation Normal sinus rhythm No previous ECGs available Confirmed by SUSANNAH MEJIA ([id number]) on 02/18/2025 11:46:41 PM GEMUSE 02/18/2025 12:2 6 PM EDT 02/18/2025 11:46 PM EDT David Potter MD ECG ORDERABLES Final Resul t GEMUSE * [id number], RSV, Influenza A and B qualitative RT-PCR (02/18/2025 12:26 PM EDT) Influenza A PCR Not Detected Not Detected LAB MICROBIOLOGY METHOD 02/18/2025 1:27 PM EDT [facility] Influenza B PCR Not Detected Not Detected LAB MICROBIOLOGY METHOD 02/18/2025 1:27 PM EDT [facility] RSV PCR Not Detected Not Detected LAB MICROBIOLOGY METHOD 02/18/2025 1:27 PM EDT [facility] SARS COV-2 Not Detected Not Detected LAB MICROBIOLOGY METHOD 02/18/2025 1:27 PM EDT [facility] Swab Both anterior nares / Unknown Non-blood Collection / Unknown 02/18/2025 12:26 PM EDT 02/18/2025 12:33 PM EDT [facility] - 02/18/2025 1:27 PM EDT Disclaimer: Testing was performed using the [employer] GeneXpert Xpress SARS-CoV-2 _Flu_RSV PLUS PCR assay. The manner in which this information is used to guide patient care is the responsibility of the healthcare provider. Results should be correlated with the clinical history, epidemiological data, and other data available to the clinician evaluating the patient. Negative results do not preclude infection. This test has been authorized by the FDA under an Emergency Use Authorization (EUA). This test is only authorized for the duration of time the declaration that circumstances exist justifying the authorization of the emergency use of in vitro diagnostic tests for detection of SARS-CoV-2 virus and/or diagnosis of COVID-19 infection under section 564 (b) (1) of the Act, 21 U.S.C 360bbb-3 (b) (1), unless the authorization is terminated or revoked sooner. Reference Range: Not Detected Fact sheet for Healthcare providers can be found at https://www.fda.gov/media/645068/download. Fact sheet for Healthcare patients can be found at https://www.fda.gov/media/518473/download. David Potter MD LAB MICROBIOLOGY - GENERAL ORDERABLES Final Result [facility] [address] [place] [address], [place] [phone] * APTT (02/18/2025 12:16 PM EDT) Pathologist [facility] aPTT 26.1 24.1 - 39.3 sec LAB COAGULATION METHOD 02/18/2025 1:02 PM EDT [facility] Blood Venous blood specimen / Unknown Venipuncture / Unknown 02/18/2025 12:16 PM EDT 02/18/2025 12:28 PM EDT us David Potter MD LAB BLOOD ORDERABLES Final Result Performing Organization Address [facility]/ZIP Co de Phone Number [facility] [address] [place] [address], [place] [phone] * Protime-INR (02/18/2025 12:16 PM EDT) [facility] Protime 12.1 10.6 - 13.9 sec LAB COAGULATION METHOD 02/18/2025 1:02 PM EDT [facility] INR 1.0 LAB COAGULATION METHOD 02/18/2025 1:02 PM EDT [facility] Blood Venous blood specimen / Unknown Venipuncture / Unknown 02/18/2025 12:16 PM EDT 02/18/2025 12:28 PM EDT us David Potter MD LAB BLOOD ORDERABLES Final Result Performing Organization Address City/[facility]/ZIP Co de Phone Number [facility] [address] [place] [address], [place] [phone] * (ABNORMAL) CBC auto differential (02/18/2025 12:12 PM EDT) [facility] WBC 10.7 4.8 - 10.8 K/mcL LAB HEMETOLOGY METHOD 02/18/2025 12:32 PM [facility] RBC 5.10(H) 3.80 - 4.80 M/mcL LAB HEMETOLOGY METHOD [facility]25 [facility] Hemoglobin 15.6 11.5 - 16.0 g/dL LAB HEMETOLOGY METHOD 02/18/2025 12:32 PM [facility] Hematocrit 44.9 35.0 - 47.0 % LAB HEMETOLOGY METHOD 02/18[facility]2025 12:[facility] MCV 88.0 79.0 - 98.0 FL LAB HEMETOLOGY METHOD 02/18/2025 12:32 PM [facility] MCH 30.6 27.0 - 32.0 pcg LAB HEMETOLOGY METHOD 02/18/2025 12:32 PM [facility] MCHC 34.7 32.0 - 37.0 g/dL LAB HEMETOLOGY METHOD 02/18/2025 12:32 PM [facility] RDW 13.6 11.0 - 15.0 % LAB HEMETOLOGY METHOD 02/18/2025 12:32 PM [facility] Platelets 306 130 - 400 K/mcL LAB HEMETOLOGY METHOD 02/18/2025 12:32 PM [facility] MPV 10.1 7.0 - 11.0 FL LAB HEMETOLOGY METHOD 02/18/2025 12:32 PM [facility] NRBC 0.0 <1.0 % LAB HEMETOLOGY METHOD 02/18[facility]2025 12:[facility] NRBC Absolute 0.00 <0.10 K/mcL LAB HEMETOLOGY METHOD 02/18/2025 12:32 PM [facility] Neutrophils Relative 51.2 % LAB HEMETOLOGY METHOD 02/18/2025 12:32 PM EDT [facility] Lymphocytes Relative 27.4 % LAB HEMETOLOGY METHOD 02/18/2025 12:32 PM [facility] Monocytes Relative 5.1 % LAB HEMETOLOGY METHOD 02/18/2025 12:32 PM [facility] Eosinophils Relative 15.4 % LAB HEMETOLOGY METHOD 02/18/2025 12:32 PM [facility] Basophils Relative 0.7 % LAB HEMETOLOGY METHOD 02/18/2025 12:32 PM [facility] Immature Granulocytes Relative 0.2 % LAB HEMETOLOGY METHOD 02/18/2025 12:32 PM [facility] Neutrophils Absolute 5.47 1.50 - 7.00 K/mcL LAB HEMETOLOGY METHOD 02/18/2025 12:32 PM [facility] Lymphocytes Absolute 2.93 1.00 - 5.00 K/mcL LAB HEMETOLOGY METHOD 02/18/2025 12:32 PM [facility] Monocytes Absolute 0.54 0.20 - 1.00 K/mcL LAB HEMETOLOGY METHOD 02/18/2025 12:32 PM [facility] Eosinophils Absolute 1.65(H) 0.00 - 0.50 K/mcL LAB HEMETOLOGY METHOD 02/18/2025 12:32 PM [facility] Basophils Absolute 0.07 0.00 - 0.20 K/mcL LAB HEMETOLOGY METHOD 02/18/2025 12:32 PM [facility] Immature Granulocytes Absolute 0.02 0.00 - 0.03 K/mcL LAB HEMETOLOGY METHOD 02/18/2025 12:32 PM [facility] Blood Venous blood specimen / Unknown Venipuncture / Unknown 02/18/2025 12:12 PM EDT 02/18/2025 12:22 PM EDT us David Potter MD LAB BLOOD ORDERABLES Final Result Performing Organization Address [facility]/ZIP Co de Phone Number [facility] [address] [place] [address], * (ABNORMAL) D-dimer, quantitative (02/18/2025 12:12 PM EDT) Pathologist [facility] D-Dimer, Quant (D-DU) 313(H) <=230 ng/mL DDU LAB COAGULATION METHOD 02/18/2025 12:49 PM EDT [facility] Blood Venous blood specimen / Unknown Venipuncture / Unknown 02/18/2025 12:12 PM EDT 02/18/2025 12:21 PM EDT Narrative [facility] - 02/18/2025 12:49 PM EDT D-Dimer <230 ng/mL (D-Dimer units) is the threshold for exclusion of DVT/PE. D-Dimer may be elevated in: Critically ill, severely infected, trauma patients, DIC, acute CVA, acute ID, unstable angina, AF, old age, , and smoking. D-Dimer may be decreased with: Initiation of heparin therapy and oral anticoagulants. us David Potter MD LAB BLOOD ORDERABLES Final Result Performing Organization Address City/[facility] Co de Phone Number [facility] [address] [place] [address], [place] [phone] * hCG Qualitative (02/18/2025 12:12 PM EDT) Pathologist [facility] hCG Qual Negative Negative 02/18/2025 1:15 PM EDT [facility] Blood Venous blood specimen / Unknown Venipuncture / Unknown 02/18/2025 12:12 PM EDT 02/18/2025 12:21 PM EDT us David Potter MD LAB BLOOD ORDERABLES Final Result Performing Organization Address [facility]/ZIP Co de Phone Number [facility] [address] [place] [address], * (ABNORMAL) Venous blood gas (02/18/2025 12:12 PM EDT) pH, [place] 7.41 7.32 - 7.42 pH 02/18/2025 12:22 PM EDT [facility] pCO2, [place] 41 41 - 51 mmHg 02/18/2025 12:22 PM EDT [facility] pO2, [place] 45(H) 25 - 40 mmHg 02/18/2025 12:22 PM EDT [facility] HCO3, Venous 24.8 22.0 - 26.0 mmol/L 02/18/2025 12:22 PM EDT [facility] O2 Sat, [place] 66.6 % 02/18/2025 12:22 PM EDT [facility] Base Excess, [place] 1.2 -2.0 - 2.0 mmol/L 02/18/2025 12:22 PM EDT [facility] Blood Venous blood specimen / Unknown Venipuncture / Unknown 02/18/2025 12:12 PM EDT 02/18/2025 12:20 PM EDT David Potter MD LAB BLOOD ORDERABLES Final Result Performing Organization Address City/[facility]/ZIP Co de Phone Number [facility] [address] [place] [address], * Basic Metabolic Panel (BMP) (02/18/2025 12:12 PM EDT) Sodium 138 133 - 145 mmol/L LAB CHEMISTRY METHOD 02/18/2025 1:04 PM EDT [facility] Potassium 3.9 3.5 - 5.5 mmol/L LAB CHEMISTRY METHOD 02/18/2025 1:04 PM EDT [facility] Chloride 105 96 - 110 mmol/L LAB CHEMISTRY METHOD 02/18/2025 1:04 PM [facility] CO2 26 21 - 32 mmol/L LAB CHEMISTRY METHOD 02/18/2025 1:04 PM [facility] Anion Gap 7 3 - 11 LAB CHEMISTRY METHOD 02/18/2025 1:04 PM EDT [facility] Glucose 86 70 - 100 mg/dL LAB CHEMISTRY METHOD 02/18/2025 1:04 PM [facility] BUN 6 5 - 25 mg/dL LAB CHEMISTRY METHOD 02/18/2025 1:04 PM [facility] Creatinine 0.68 0.50 - 1.10 mg/dL LAB CHEMISTRY METHOD [facility]2025 [facility] eGFR 121 >=60 mL/min/1. 73m2 LAB CHEMISTRY METHOD 02/18/2025 1:04 PM [facility] Comment:Calculation based on the Chronic Kidney Disease Epidemiology Collaboration (CKD-EPI) equation refit without adjustment for race. BUN/Creatinine Ratio 8.8 LAB CHEMISTRY METHOD 02/18/2025 1:04 PM [facility] Calcium 9.6 8.5 - 10.5 mg/dL LAB CHEMISTRY METHOD 02/18/2025 1:04 PM T [facility] Blood Venous blood specimen / Unknown Venipuncture / Unknown 02/18/2025 12:12 PM EDT 02/18/2025 12:21 PM EDT us David Potter MD LAB BLOOD ORDERABLES Final Result [facility] [address] [place] [address], [place] [phone] * XR Chest 2 Views (01/01/2025 8:53 AM EDT) Anatomical Region Laterality Modality Body Radiographic Samia ging 01/01/2025 8:59 AM EDT Impressions 01/01/2025 8:59 AM EDT Impression: Stable radiographic appearance of the chest. No active pulmonary process identified. [employer] LOGAN ([id number]) -------- FINAL REPORT -------- Dictated By: Milagro Hankins Dictated Date: 01/01/2025 08:59 ET Assigned Physician: Milagro Hankins Reviewed and Electronically Signed By: Milagro Hankins Signed Date: 01/01/2025 08:59 ET Workstation ID: [id number] Transcribed By: Self Edit Transcribed Date: 01/01/2025 08:59 ET Narrative 01/01/2025 8:59 AM EDT History: Dyspnea. Asthma exacerbation. Comparison: 06/13/24 Findings: PA and lateral views. The cardiomediastinal silhouette, hilar contours and pulmonary vascularity are within normal limits. The lungs are clear. The costophrenic angles are sharp. The regional skeleton is intact. Procedure Note Milagro Hankins MD - 01/01/2025 History: Dyspnea. Asthma exacerbation. Comparison: 06/13/24 Findings: PA and lateral views. The cardiomediastinal silhouette, hilar contours andpulmonary vascularity are within normal limits. The lungs are clear. Thecostophrenic angles are sharp. The regional skeleton is intact. IMPRESSION: Impression: Stable radiographic appearance of the chest. No active pulmonary processidentified. [employer] LOGAN ([id number]) -------- FINAL REPORT -------- Dictated By: Milagro Hankins Dictated Date: 01/01/2025 08:59 ET Assigned Physician: Milagro Hankins Reviewed and Electronically Signed By: Milagro Hankins Signed Date: 01/01/2025 08:59 ET Workstation ID: [id number] Transcribed By: Self Edit Transcribed Date: 01/01/2025 08:59 ET Kendra Howell NP IMG XR PROCEDURES Final Result from Last 3 Months Insurance * Guarantor: Lenka Solitario Account Type Relation to Patient Date of Phone Billing Address Personal/Family Self 1995 [address] [place] [address] [facility] PL[facility] Care Teams 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
== END 2025-03-03 15:19 | disposition home or self-care (01) ==
LOC: HO.HPSW 14:41
PROVIDERS: PCP Internal Medicine; Visit Provider Nurse Practitioner Family
DX: J45.909 Unspecified asthma, uncomplicated (principal); Z91.09 Other allergy status, other than to drugs and biological substances
CPT/HCPCS: 99204

== ENCOUNTER → 2025-03-03 14:40 | Outpatient (BNVA) | payer OTHER, SELFPAY | PROVIDERS: PCP Internal Medicine; Visit Provider Nurse Practitioner Family | DX: Z91.09 Other allergy status, other than to drugs and biological substances (principal); J45.909 Unspecified asthma, uncomplicated | CPT/HCPCS: 99202 ==